=== PATIENT | male | born 1975 | race Caucasian/White ===

== ENCOUNTER 2020-02-02 07:27 | Outpatient (CLI) | payer OTHER, SELFPAY ==
--- NOTE | 2020-02-07 11:43 | SLEEP_ITS ---
Home Sleep Test DATE OF STUDY: 02/02/2020 ORDERING PHYSICIAN: Desire Plasencia MD. REASON FOR THE STUDY: Hypersomnia, witnessed apnea, dry mouth. HISTORY: This patient is a 45-year-old male, 5 feet 9 inches tall, weighing 217 pounds with a body mass index of 32. He has a history of never feeling rested after waking, constantly fatigue. This started 4-5 years ago. This happens nightly. He constantly snores and it is frequently loud enough that others complain about it. He has difficulty waking up in the morning because he has excessive sleepiness and he does wake up during the night. He frequently awakens at night with heartburn, belching, or coughing. He occasionally awakens from sleep feeling short of breath. He frequently has trouble sleeping with a cold, rarely wakes up gasping for breath at night, constantly has breathing problems at night. He occasionally sweats excessively at night. He rarely notices his heart pounding or beating irregularly at night, rarely falls asleep during the day, rarely falls asleep involuntarily, and never falls asleep while driving. He does not fall asleep with physical effort. He does not have loss of muscle tone with strong emotion. He frequently has daytime difficulties due to excessive sleepiness, works as a web developer programmer. He does not feel paralyzed on waking or falling asleep. He occasionally has vivid dreamlike scenes upon awakening or falling asleep. He is never afraid to go to sleep. He rarely has nightmares, rarely remembers his dreams. He occasionally has racing thoughts. He frequently has feelings of sadness, depression, and anxiety. He rarely has muscular tension. He rarely notices parts of his body jerking and he rarely kicks at night. He does not have crawly achy feelings in the legs and does not have leg pain at night. He does not have morning jaw pain. He rarely grinds his teeth at night. He rarely is bothered by pain during the day or is awakened by pain at night. He frequently wakes up feeling stiff in the morning, rarely with sore achy muscles, rarely with pain in the neck and spine. He is depressed, has fatigue, memory problems, recovering alcohol for the last 17 years and concentration difficulties. Normal bedtime is 9 p.m., taking 30 minutes to fall asleep, waking 2-3 times at night briefly, will urinate and then go back to sleep. Weekend schedule, he goes to bed between 9 and 10 p.m. and wakes at 6 a.m. compared to 4:30 a.m. on weekdays. He does not take naps. A short nap is not refreshing. He is usually drowsy in the morning for 3 hours or longer. MEDICAL COMORBIDITIES: Depression, nasal allergies, heartburn, anxiety, ADD. MEDICATIONS: 1. Lamotrigine 25 mg at night. 2. Duloxetine 120 mg daily. 3. Bupropion XL 150 mg daily. 4. Nasacort 2 sprays each nostril daily. 5. Vitamin D 1000 units daily. HABITS: Quit tobacco, smoked years ago. Caffeine, 3-4 beverages a day. No current alcohol. No recreational drugs. DESCRIPTION OF THE STUDY: On the [place] Sleepiness Scale, the score is 6. This was conducted as an unattended type III portable home sleep test using 4-channel monitoring with respiratory effort channel, snoring channel, oxygen saturation channel, and heart rate channel. The study was scored using CMS guidelines. Duration of the study was 7 hours 42 minutes. The apnea-hypopnea index is 10, elevated. Oxygen desaturation index is 10, elevated. The lowest desaturation is 74%. He had 73 hypopneas and 192 snoring events with 73 desaturations and he spent 31 minutes or 7% of the study below 88% saturation. Heart rate ranged from 60 to 121, elevated. IMPRESSION: 1. This home sleep test shows evidence of at least mild obstructive sleep apnea syndrome, G47.33, with an AHI of 10, frequ
== END 2020-02-02 07:28 | disposition home or self-care (01) ==
LOC: ANHCSM 07:51
PROVIDERS: Visit Provider Internal Medicine Critical Care Medicine
DX: G47.33 Obstructive sleep apnea (adult) (pediatric) (principal)
CPT/HCPCS: 95806

== ENCOUNTER 2024-01-29 10:23 | Emergency (ER) | payer OTHER, SELFPAY ==
[2024-01-29 10:33] VITALS: BP 125/85; PULSE 77; RESP 20; TEMP 36.3; O2SAT 99
--- NOTE | 2024-01-29 10:50 | ED.GENADULT ---
HPI - General Adult General Chief complaint: Skin/Abscess/Foreign Body Stated complaint: Poison Jeanette Source: patient Mode of arrival: ambulatory Limitations: no limitations History of Present Illness HPI narrative: Patient presents for evaluation of a pruritic rash to his face, arms, scalp for the last 3 days after exposure to poison jeanette. Denies any difficulty breathing or swallowing. He has taken steroids in the past tolerated them well. He is not diabetic. No new lotions, soaps, topical products. Related Data Home Medications Medication Instructions Recorded Confirmed ascorbate calcium (vitamin C) 500 500 mg PO DAILY 11/04/19 mg capsule bupropion HCl 150 mg 24 hr tablet, 150 mg PO QAM 11/04/19 extended release bupropion HCl [Wellbutrin] PO 11/04/19 cholecalciferol (vitamin D3) 10 10 mcg PO BID 11/04/19 mcg (400 unit) tablet (Vitamin D3) duloxetine 60 mg capsule,delayed 60 mg PO BID 11/04/19 release multivitamin 1 tablet PO DAILY 11/04/19 methylphenidate HCl 10 mg tablet 15 mg PO DAILY 11/13/19 (Ritalin) Allergies Allergy/AdvReac Type Severity Reaction Status Date / Time Penicillins Allergy Unknown Unknown Verified 11/13/19 11:15 Review of Systems Review of Systems: CONSTITUTIONAL: Denies fever, chills, or sweats. EYES: Denies visual changes, redness, or discharge. ENT: Denies rhinorrhea, congestion, sore throat, or otalgia. CARDIOVASCULAR: Denies chest pain, palpitations, or edema. RESPIRATORY: Denies cough or dyspnea. GASTROINTESTINAL: Denies abdominal pain, nausea, vomiting, or diarrhea. GENITOURINARY: Denies dysuria or hematuria. SKIN: Reports pruritic rash to the bilateral arms, face, and scalp MUSCULOSKELETAL: Denies back pain, joint pain, or myalgia. NEUROLOGIC: Denies headache, numbness, dizziness, or weakness. PSYCHIATRIC: Denies anxiety or depression. 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 HEAD: Normocephalic, atraumatic. EYES: PERRLA and EOMI. ENT: Nares clear, no rhinorrhea or epistaxis. Mucous membranes moist. Oropharynx without tonsillar hypertrophy exudate or other lesions. Bilateral TMs pearly multani nonbulging NECK: Supple. No adenopathy or masses. No carotid bruits or JVD CHEST: Clear to auscultation. No respiratory distress. No wheezes rales or rhonchi HEART: Regular rate and rhythm. No murmur heard. Normal peripheral pulses. ABDOMEN: Soft, nontender, nondistended, normal active bowel sounds. EXTREMITIES: Normal range of motion. No edema. SKIN: There is erythematous rash to the scalp, face, and bilateral forearms in a patchy distribution. There are some vesicles noted. NEURO: No focal deficits. Alert and oriented x3. PSYCH: Normal mood and affect. Course Course Emergency Course: This is a 48-year-old male who presented for evaluation of a pruritic rash. Exam is consistent with poison jeanette dermatitis. Advised on use of calamine lotion at home. Start prednisone taper to prevent rebound commonly seen in burst therapy for poison jeanette. Follow-up with
== END 2024-01-29 10:54 | disposition home or self-care (01) ==
PROVIDERS: Emergency Provider Nurse Practitioner
DX: L23.7 Allergic contact dermatitis due to plants, except food (principal)
CPT/HCPCS: 99213; G0463